=== PATIENT | male | born 1965 | race Two or more races ===

== ENCOUNTER 2020-05-18 21:39 | Emergency (ER) | payer BC ==
[~2020-05-18] VITALS: Ht 172.7 cm; Wt 89.0 kg
[2020-05-18] MEDS ORDERED: HYDROcodone/acetaminophen 5mg/325mg tablet PO ONE (22:50)
[2020-05-18] MEDS ORDERED: ondansetron 4mg rapidly disintigrating tab PO ONE (22:50)
[2020-05-18] MEDS ORDERED: ketamine 10mg/ml 20ml inj IV ONE (23:00)
[2020-05-18] MEDS ORDERED: ketamine 50 mg/ml 10ml vial IV ONE (23:05)
[2020-05-18] MEDS ORDERED: ondansetron/PF 4mg/2ml inj IV ONE (23:20)
[2020-05-18] MEDS ORDERED: midazolam 2 mg/2 ml injection ONE (23:42)
[2020-05-18] MEDS ORDERED: MIDAZolam 5mg/ml 2ml vial IV ONE (23:45)
[2020-05-19] MEDS ORDERED: HYDR-4383 PO (00:27)
[2020-05-19] MEDS ORDERED: ONDA4TAB6 PO (00:27)
[2020-05-19 01:07] VITALS: BP 143/84
== END 2020-05-19 01:08 | disposition home or self-care (01) ==
LOC: ER 21:40
DX: S52.501A Unspecified fracture of the lower end of right radius, initial encounter for closed fracture (principal); Z88.6 Allergy status to analgesic agent; Z88.8 Allergy status to other drugs, medicaments and biological substances; Z79.899 Other long term (current) drug therapy; W19.XXXA Unspecified fall, initial encounter; Y93.89 Activity, other specified; Y92.89 Other specified places as the place of occurrence of the external cause; Y99.8 Other external cause status
CPT/HCPCS: 25605; 73030; 73090; 73100; 96374; 99152; 99153; 99285; J2250; J2405; 94760; 96375; 99284